=== PATIENT | male | born 1960 | race Caucasian/White ===

== ENCOUNTER 2018-02-11 10:35 | Outpatient (CLI) | payer BC, MEDICARE ==
[~2018-02-11] VITALS: Ht 172.7 cm; Wt 109.1 kg
--- NOTE | ~2018-02-11 | HEMODYNAMI ---
PATIENT:GINO WALSH MEDICAL RECORD: [id number] : 56 LOCATION:[facility] ADMISSION DATE: 02/11/18 Generatedon:02/11/201813:44 Patient name: GINO WALSH Patient #: [id number] SSN: DO B: 1960 Date of study: 02/11/2018 Page: Of Hemodynamic Procedure Report Patient Data Patient Demographics Procedure consent was obtained First Name: GINO Gender: Male Last Name: NICO : 1960 [facility] Initial: LISA Age: 57 year(s) Patient #: [id number] Race: Unknown Additional ID: [id number] Contact details [address]: [address] [place] [address] State: [place] City: [place] Zip code: [address] Past Medical History Allergies Allergen Reaction Date Comments Reported Other allergy 02/11/2018 TETRACYCLINE Admission Admission Data Admission Date: 02/11/2018 Admission Time: 10:35 Procedure Procedure Types Cath Procedure Diagnostic Procedure LHC LHC w/Coronaries Sedation Charges Moderate Sedation up to 15 minutes Procedure Description Procedure Date Procedure Date: 02/11/2018 Procedure Start Time: 13:32 Procedure End Time: 13:43 Procedure Staff Name Function Han Caal MD Performing Physician Pilar Gill RT Monitor Jose Lipscomb RN Nurse Leta Das RN Nurse Ijeoma Gray RT Scrub Procedure Data Cath Procedure Fluoroscopy Diagnostic fluoroscopy Total fluoroscopy Time: 2.5 time: 2.5 min min Diagnostic fluoroscopy Total fluoroscopy dose: 684 dose: 684 mGy mGy Contrast Material Contrast Material Type Amount (ml) Isovue 300 74 Entry Location Entry Primary Successful Side Size Upsize Upsize Entry Closure [place] ccessful Closure Location (Fr) 1 (Fr) 2 (Fr) Remarks Device Remarks Radial Right 6 Fr Mechanical artery Short Compression Estimated blood loss: 5 ml Diagnostic catheters Device Type Used For End Catheter Placement DIAGNOSTIC Jamey 110cm Procedure 5Fr catheter ([id number]) Procedure Complications No complications Procedure Medications Medication Administration Route Dosage Oxygen etCO2 Nasal cannula 2 l/min Zofran I.V. 4 mg Lidocaine 2% added to field 20 Heparin Flush Bag added to field 2 bags (1000units/500ml NS) 0.9% NaCl I.V. 100 ml/hr Versed I.V. 2 mg Fentanyl I.V. 100 mcg Fentanyl I.V. 50 mcg Radial Cocktail I.A. (Verapomil 2mg/Nitro 400mcg/Heparin 1500units) Versed I.V. 1 mg Hemodynamics Rest Heart Rate: 55 (bpm) Pressure Samples Time Site Value (mmHg) Purpose Heart Use Rate(bpm) 13:35 LV 144/-6,12 Snapshot 71 Gradients Valve Time Site Site Mean SEP/DFP Peak To Heart Use 1 2 (mmHg) (sec/min) Peak Rate (mmHg) (bpm) Aortic 13:36 LV AO 71 Snapshots Pre Cath Intra NCS Post Cath Vital Signs Time Heart Resp SPO2 etCO2 NIBP (mmHg) Rhythm Pain Sedation Rate (ipm) (%) (mmHg) Status Level (bpm) 13:14:15 53 14 97 47 131/77(106) NSR 0 (11) 10(A) , No pain 13:19:08 61 15 98 45 139/85(101) NSR 0 (11) 10(A) , No pain 13:24:01 67 22 99 47 138/73(106) NSR 0 (11) 10(A) , No pain 13:28:52 63 15 97 51 109/80(92) NSR 0 (11) 10(A) , No pain 13:33:37 63 13 98 23.2 119/73(89) NSR 0 (11) 10(A) , No pain 13:38:27 69 14 96 24 100/56(81) NSR 0 (11) 10(A) , No pain 13:43:26 64 12 95 33 Measuring NSR 0 (11) 10(A) , No pain 13:43:53 66 13 96 35.2 129/72(114) NSR 0 (11) 10(A) , No pain Medications Time Medication Route Dose Verified Delivered Reason Notes E ffectiveness by by 13:16:17 Oxygen etCO2 2 Han Leandroie used for Nasal l/min Ten Lipscomb outreach worker cannula 13:16:25 Zofran I.V. 4 mg Han Buffie Per Caal MD Lipscomb RN physician 13:16:40 Lidocaine 2% added 20ml Han Han used for to vial Ten Caal MD procedure field 13:16:54 Heparin Flush added 2 Han Han used for Bag to bags Ten Caal MD procedure (1000units/500ml field NS) 13:17:03 0.9% NaCl I.V. 100 Han Buffie Per ml/hr Ten Lipscomb RN physician 13:26:11 Versed I.V. 2 mg Han Buffie for sedation Ten Lipscomb RN 13:26:18 Fentanyl I.V. 100 Han Buffie for sedation mcg Ten Lipscomb RN 13:34:02 Fentanyl I.V. 50 Han Buffie for sedation mcg Ten Lipscomb RN 13:34:14 Radial Cocktail I.A. Han Han for (Verapomil Ten Caal MD vasodilation 2mg/Nitro 400mcg/Heparin 1500units) 13:35:37 Versed I.V. 1 mg Han Buffie for sedation Ten Lipscomb RN Procedure Log Time Note 13:01:51 Jose Lipscomb RN sent for patient. Start room use. 13:01:52 Time tracking: Regular hours (M-F 7:00 - 5:00) 13:01:56 Plan of Care:Hemodynamics will remain stable., Cardiac rhythm will remain stable., Comfort level will be maintained., Respiratory function will remain adequate., Patient/ family verbilizes understanding of procedure., Procedure tolerated without complication., Recovers from procedure without complications.. 13:08:05 Patient received from Pre/Post Procedure Room to [facility] 1 Alert and oriented. Tansferred to table in Supine position. 13:08:06 Warm blankets applied, and david hugger turned on for patient comfort. 13:08:07 Correct patient and procedure confirmed by team. 13:08:11 Signed procedure consent form obtained from patient. 13:08:12 ECG and BP/O2 sat monitors applied to patient. 13:08:13 Full Disclosure recording started 13:13:12 Vital chart was started 13:16:17 Oxygen 2 l/min etCO2 Nasal cannula was administered by Jose Lipscomb RN; used for procedure; 13:16:25 Zofran 4 mg I.V. was administered by Jose Lipscomb RN; Per physician; 13:16:40 Lidocaine 2% 20ml vial added to field was administered by Han Caal MD; used for procedure; 13:16:54 Heparin Flush Bag (1000units/500ml NS) 2 bags added to field was administered by Han Caal MD; used for procedure; 13:17:03 0.9% NaCl 100 ml/hr I.V. was administered by Jose Lipscomb RN; Per physician; 13:21:20 Baseline sample Acquired. 13:21:26 Rhythm: sinus bradycardia 13:21:39 H&P Date Dictated: 02/11/2018 Within 30 days and on chart., H&P Addendum completed by physician on day of procedure. (MUST COMPLETE FOR ALL OUTPATIENTS). 13:21:40 Pre-procedure instructions explained to patient. 13:21:40 Pre-op teaching completed and patient verbalized understanding. 13:21:42 Family in patients room. 13:21:43 Patient NPO since Midnight. 13:21:53 Patient allergic to Other allergyTETRACYCLINE 13:21:56 Is the patient allergic to Iodine/contrast media? No. 13:22:00 Is patient on blood thinner?No 13:22:08 Previous problem with sedation/anesthesia? Yes NAUSEA 13:22:10 Snore? Yes 13:22:11 Sleep apnea? Yes 13:22:12 Deviated septum? No 13:22:13 Opens mouth fully? Yes 13:22:15 Sticks out tongue? Yes 13:22:17 Airway obstruction? No ? 13:22:21 Dentures? Yes IN TIGHT 13:22:25 Modified Wali's test Ulnar < 7 seconds 13:22:27 Patient pain scale 0/10 ?. 13:22:33 IV patent on arrival in left hand with 0.9% NaCl at [facility]. 13:22:37 Right Radial & Right Groin area was prepped with chlora-prep and draped in sterile fashion 13:22:37 Alarms reviewed by R. N. 13:22:38 Sharps counted by scrub and verified by R.N. 13:22:40 Use device set Radial Dx or PCI 13:22:41 ACIST Syringe (99972) opened to sterile field. 13:22:43 Bag Decanter () opened to sterile field. 13:22:44 ACIST Hand Control (60779) opened to sterile field. 13:22:44 ACIST Manifold (84658) opened to sterile field. 13:22:45 Tegaderm 4 x 4 (1626W) opened to sterile field. 13:22:46 Medline Cath Pack ([id number]) opened to sterile field. 13:22:47 DIAGNOSTIC WIRE .035 260cm J wire (610331) opened to sterile field. 13:22:48 MBrace Wrist Support ([id number]) opened to sterile field. 13:22:50 SHEATH 6Fr Prelude Radial ([id number]) opened to sterile field. 13:24:32 --------ALL STOP TIME OUT------ ::32 Final Timeout: patient, procedure, and site verified with staff and physician. All members of the team are in agreement. 13:24:34 Right Radial & Right Groin site verified by team. 13:24:36 Physical assessment completed. ASA score P 2 - A patient with mild systemic disease as per Han Caal MD. 13:24:39 Sedation plan: IV Moderate Sedation Medication:Versed, Fentanyl 13:26:11 Versed 2 mg I.V. was administered by Jose Lipscomb RN; for sedation; 13:26:18 Fentanyl 100 mcg I.V. was administered by Jose Lipscomb RN; for sedation; 13:31:40 Zero performed for pressure channel P1 13:32:10 Procedure started. 13:32:23 Local anesthetic to right radial artery with Lidocaine 2% by Han Caal MD.INITIAL ACCESS ONLY 13:34:02 Fentanyl 50 mcg I.V. was administered by Jose Lipscomb RN; for sedation; 13:34:07 A 6 Fr Short sheath was inserted into the Right Radial artery 13:34:14 Radial Cocktail (Verapomil 2mg/Nitro 400mcg/Heparin 1500units) I.A. was administered by Han Caal MD; for vasodilation; 13:35:06 A DIAGNOSTIC Jamey 110cm 5Fr catheter (770371) was advanced over the wire and used for Procedure. 13:35:37 Versed 1 mg I.V. was administered by Jose Lipscomb RN; for sedation; 13:35:38 LV gram done using HORTON 13:35:40 Injector settings: Ml/sec: 5, Volume: 15, 13:35:55 LV hemodynamics recorded. 13:36:12 EF : 55 % 13:37:39 RCA angiography performed. 13:39:52 LCA angiography performed. 13:39:59 Catheter removed. 13:41:12 Procedure ended.(Physican Out) 13:41:32 TR BAND Large ([id number]) opened to sterile field. 13:41:35 Sheath removed intact; hemostasis achieved with Mechanical Compression to the Right Radial artery. 13:41:47 Fluoroscopy time 02.50 minutes. 13:41:59 Fluoroscopy dose: 684 mGy 13:41:59 Flurop Dose total: 684 13:42:03 Contrast amount:Isovue 300 74ml. 13:42:04 Sharps counted by scrub and verified by R.N. 13:42:07 TR band inflated with 11cc of air. 13:42:11 Post-procedure physical assessment completed. ASA score P 2 - A patient with mild systemic disease as per Han Caal MD. 13:42:18 Post procedure rhythm: sinus rhythm 13:42:21 Estimated blood loss: 5 ml 13:42:22 Post procedure instruction explained to patient.Patient verbalizes understanding. 13:42:22 Patient needs reinforcement of post procedure teaching. 13:42:49 Procedure type changed to Cath procedure, Diagnostic procedure, LHC, LHC w/Coronaries, Sedation Charges, Moderate Sedation up to 15 minutes 13:43:17 Procedure and supply charges have been captured, reviewed, submitted and are correct. 13:43:27 Procedure Complication : No complications 13:43:29 Vital chart was stopped 13:43:30 See physician's report for complete and final results. 13:43:31 Report given to Pre/Post Procedure Room. 13:43:35 Patient transfered to Pre/Post Procedure Room with Bed. 13:43:37 Procedure ended. 13:43:37 Full Disclosure recording stopped 13:43:41 End room use (Document Last) Device Usage Item Name Manufacture Quantity Catalog Number Hospital Part Current M inimal Lot# / Charge Number Stock Stock Serial# Code ACIST Syringe Acist 1 39831 777564 431835 946110 2 0 (10569) [employer] Bag Decanter Microtek 1 209422 54122 798217 5 () Medical Inc. ACIST Hand Acist 1 78976 747420 108646 011000 5 Control (54646) [employer] ACIST Manifold Acist 1 40433 134945 456765 973759 5 (67672) [employer] Inc Tegaderm 4 x 4 3M 1 1626W 841698 695830 848039 5 (1626W) Medline Cath Cardinal 1 [id number] 556799 49129 615101 5 [facility] ([id number]) DIAGNOSTIC WIRE [facility] 1 742240 829109 702161 929452 3 0 .035 260cm J wire (691186) MBrace Wrist Advanced 1 140-0250-00 367350 12727 464884 5 Support Vascular ([id number]) Dynamics SHEATH 6Fr Merit 1 [id number] 642971 548981 840698 5 Prelude Radial Medical ([id number]) DIAGNOSTIC Terumo 1 25-2872 411969 203217 392276 5 Jamey 110cm 5Fr catheter (730336) TR BAND Large Terumo 1 [id number] 690824 904956 863546 4 0 ([id number]) Signature Audit Onyx Stage Time Signature Unsigned Intra-Procedure 02/11/2018 Pilar Gill 1:44:16 PM RT(R) Signatures Monitor : Pilar Gill Signature : RT Date : Time : [place] [id number] [facility] [place] [address]
[2018-02-11] MEDS ORDERED: VALIUM10 MG PO (10:53)
[2018-02-11] MEDS ORDERED: TESTOSTERONE CYP 200 (10:53)
[2018-02-11] MEDS ORDERED: FLOMAX0.4 MG PO (10:53)
[2018-02-11] MEDS ORDERED: UROCIT-K10 MEQ PO (10:54)
[2018-02-11] MEDS ORDERED: HCTZ25 MG PO (10:54)
[2018-02-11] MEDS ORDERED: DILAUDID INJ2 MG/ML IV (10:55)
[2018-02-11 11:10] VITALS: BP 141/87; Ht 172.7 cm; Wt 109.1 kg
[2018-02-11 11:17] LABS: BASOPHILS 0.6 % (0-2); EOSINOPHILS 1.8 % (0-7); HEMOGLOBIN 19.9 g/dL (13.5-17.5); IMMATURE GRANULOCYTES 0.3 % (0-5); LYMPHOCYTES 17.9 % (15-50); MCH 32.8 pg (26.0-34.0); MCHC 36.2 g/dL (31.0-37.0); MCV 90.8 fL (80.0-100.0); MEAN PLATELET VOLUME 9.8 fL (7.4-10.4); MONOCYTES 9.5 % (2-11); NEUTROPHILS 69.9 % (40-80); PLATELET COUNT 142 10x3/uL (130-400); RBC 6.06 10x6/uL (4.20-6.10); RDW 12.6 % (11.5-14.5); WBC 9.3 10x3/uL (4.8-10.8)
[2018-02-11 11:28] LABS: CALC OSMOLALITY 271 mosm/kg (275-300); CALCIUM 8.7 mg/dL (8.5-10.1); CARBON DIOXIDE 29.3 mmol/L (21.0-32.0); CHLORIDE - SERUM 101 mmol/L (98-107); CREATININE - SERUM 0.9 mg/dL (0.6-1.3); GLUCOSE 137 mg/dL (74-106); POTASSIUM - SERUM 3.7 mmol/L (3.5-5.1); SODIUM 135 mmol/L (136-145); UREA NITROGEN 13 mg/dL (7-18); eGFR NON AFRICAN AMERICAN > 90 mL/min (90-120)
== END 2018-02-11 16:25 | disposition home or self-care (01) ==
LOC: D.CATH 10:35
PROVIDERS: Internal Medicine Cardiovascular Disease
DX: I20.9 Angina pectoris, unspecified (principal); F32.9 Major depressive disorder, single episode, unspecified; Z96.652 Presence of left artificial knee joint; Z87.891 Personal history of nicotine dependence; Z88.1 Allergy status to other antibiotic agents; Z79.891 Long term (current) use of opiate analgesic; Z79.899 Other long term (current) drug therapy; Z01.812 Encounter for preprocedural laboratory examination

== ENCOUNTER 2018-12-04 08:05 | Day surgery (SDC) | payer BC, MEDICARE ==
[2018-12-03 09:17] LABS: CALC OSMOLALITY 290 mosm/kg (275-300); CALCIUM 8.4 mg/dL (8.5-10.1); CARBON DIOXIDE 34.4 mmol/L (21.0-32.0); CHLORIDE - SERUM 104 mmol/L (98-107); GLUCOSE 167 mg/dL (74-106); HEMATOCRIT 52.1 % (42.0-54.0); HEMOGLOBIN 19.3 g/dL (13.5-17.5); MCH 33.8 pg (26.0-34.0); MCV 91.2 fL (80.0-100.0); MEAN PLATELET VOLUME 9.7 fL (7.4-10.4); POTASSIUM - SERUM 3.5 mmol/L (3.5-5.1); RBC 5.71 10x6/uL (4.20-6.10); RDW 12.7 % (11.5-14.5); SODIUM 143 mmol/L (136-145); UREA NITROGEN 17 mg/dL (7-18); eGFR NON AFRICAN AMERICAN 81 mL/min (90-120)
[~2018-12-04] VITALS: Ht 172.7 cm; Wt 117.9 kg
[~2018-12-04 08:05] MED LIST: DILAUDID INJ2 MG/ML IV; FLOMAX0.4 MG PO; HCTZ25 MG PO; TESTOSTERONE CYP 200; UROCIT-K10 MEQ PO; VALIUM10 MG PO
[2018-12-04] MEDS ORDERED: VITAMIN D5000 UNIT PO (10:05)
[2018-12-04 10:27] VITALS: Ht 172.7 cm; Wt 117.9 kg
[2018-12-04] MEDS ORDERED: VISTARIL50 MG PO (15:26)
[2018-12-04] MEDS ORDERED: OXYCODONE HCL5 M1 PO (15:26)
--- NOTE | 2018-12-04 16:00 | NUR ---
REC'D FROM RR. FAMILY AT BEDSIDE. SLING IN USE TO RUE. WIGGLES FINGERS, NUMB TO TOUCH. FL DIET SERVED.
--- NOTE | 2018-12-04 16:30 | NUR ---
TOLERATED DIET. IV DC'D WITH CATHETER INTACT. AMBULATED TO BATHROOM. VOIDED WITHOUT DIFFICULTY.
--- NOTE | 2018-12-04 17:00 | NUR ---
WRITTEN AND VERBAL DC INST. GIVEN TO PT ALONG WITH RX.VERBALIZED UNDERSTANDING.
--- NOTE | 2018-12-04 17:15 | NUR ---
DC'D HOME WITH FAMILY VIA PRIVATE VEHICLE. STABLE AT TIME OF DC.
--- NOTE | 2018-12-05 09:12 | OP ---
PATIENT NAME: GINO WALSH MEDICAL RECORD: [id number] :56 LOCATION:[facility] ADMISSION DATE: SURGEON: GINO FLOOD DO DATE OF OPERATION: 12/04/2018 PROCEDURE PERFORMED: Right shoulder arthroscopy with labral debridement, subacromial decompression, biceps tendinosis, and open rotator cuff repair. PREOPERATIVE DIAGNOSES: Right shoulder rotator cuff tear, SLAP tear, subacromial impingement. POSTOPERATIVE DIAGNOSES: Right shoulder rotator cuff tear, SLAP tear, subacromial impingement. INDICATIONS: Ms. Walsh is a 58-year-old male who presented to my office with MRI imaging that showed a partial rotator cuff tear, probably SLAP tear. He has had pain with that for quite some time. He tried all manner of nonoperative treatment to no avail and he was tired of the weakness and tied is bothering him and he wants something done surgically and informed him of the risks and benefits including damage to nerves and vessels, need for further surgery, infection, bleeding, retear of the rotator cuff and continued pain. He is on the pain pump and he was aware that his pain will be difficult to manage after the surgery. After knowing all the risks and the benefits, he signed the consent. SURGEON: Gino Flood DO DESCRIPTION OF PROCEDURE: The patient was taken to the operative suite after given a block by anesthesia in preoperative area laid in the left lateral decubitus position with the right shoulder up. He was given 2 grams of Ancef preoperatively. The right shoulder was prepped and draped in sterile fashion. He was sedated and an LMA was placed prior to prepping and draping. A timeout was performed and everyone was agreeance with the correct side, site, patient and procedure. Once that was completed, the procedure began by inflating the shoulder joint with normal saline 60 mL through the posterior portal, an 18-gauge spinal needle. This was then removed. An 11 blade scalpel was used to establish posterior portal. Trocar was then entered into the shoulder joint and the camera was entered and the anterior portal was then established using a spinal needle and 11-blade scalpel. A probe was brought in. The SLAP tear was seen. The bicep tendon was quite frayed. There was fraying of the supraspinatus as well. Burner was brought in and biceps tenotomy was done at time as well as labral debridement. The shaver was then brought and debrided the supraspinatus tendon. There was U-shaped tear seen completely through the tendon. The subscapularis was then inspected and seen to be in good repair and nothing was in the inferior gutter. The shoulder scope was then put into the subacromial space and a lateral portal established using spinal needle and 11-blade scalpel. A subacromial debridement was done decompression and part of the distal lateral acromion was removed. The rotator cuff and bursa was debrided and the tear was seen on the bursal side as well. The lateral portal was then opened with a 15-blade scalpel in order for the rotator cuff repair. Careful dissection was made down to the rotator cuff. Bursa was cleaned off of it. The SpeedBridge was then used to repair it with 2 medial anchors and 2 lateral anchors using FiberTape and sutures had a very nice repair with this pulling the rotator cuff over and getting good compression over at. That site was then irrigated with normal saline and the attention was then drawn to the OPERATIVE REPORT [id number] GINO WALSH bicep tendon. Anterior humerus incision was made over it. Dissection was made down to the long head of the biceps tendon. It was pulled out through the incision, whipstitched and then a button was placed on it and a single unicortical hole was placed in the humerus. The button was then put through it and flipped. Once we got to flip and catch the tendon was cinched down to it and then tied and then a free needle was used to tie go through the bicep tendon again and tied down. The excess tendon was cut at that time as well as a suture. The site was then thoroughly irrigated and then closed with 2-0 Vicryl in inverted interrupted fashion, 4-0 Monocryl ran on the skin. Same for the open rotator cuff site and the 2 portal sites were closed with 4-0 Monocryl in inverted interrupted fashion and Dermabond was placed on the incisions. Telfa and Tegaderm then placed on them. He was then awakened and taken to recovery in stable condition. BLOOD LOSS: Minimal. COMPLICATIONS: None. TRANSINT:[id number] Voice Confirmation ID: [id number] DOCUMENT ID: [id number] GINO FLOOD DO at 0912 CC: [id number] DICTATION DATE: 12/04/18 1523 RHIA: 12/04/181922 [facility] 12/04/18 [facility] [address] [place] [address]
== END 2018-12-04 17:15 | disposition home or self-care (01) ==
LOC: D.OPS 08:05
PROVIDERS: Anesthesiology; ATTEND Orthopaedic Surgery
DX: M75.111 Incomplete rotator cuff tear or rupture of right shoulder, not specified as traumatic (principal); S43.431A Superior glenoid labrum lesion of right shoulder, initial encounter; M75.41 Impingement syndrome of right shoulder; X58.XXXA Exposure to other specified factors, initial encounter; Z01.812 Encounter for preprocedural laboratory examination

== ENCOUNTER 2019-05-18 18:26 | Inpatient (IN) | payer MEDICARE, BC ==
[~2019-05-18] VITALS: Ht 172.7 cm; Wt 122.6 kg
--- NOTE | ~2019-05-18 | HP ---
PATIENT: GINO WALSH MEDICAL RECORD: [id number] ACCOUNT: [id number] LOCATION:[address] : 56 ADMISSION DATE: 05/18/19 PCP: MADHAVI KIMBALL DO HISTORY AND PHYSICAL EXAMINATION HISTORY OF PRESENT ILLNESS: Mr. Walsh is a 58-year-old white male who was initially seen in the walk-in clinic on 05/13/2019 and diagnosed with pneumonia. His initial flu test was negative. He was given a gram of Rocephin and started on p.o. Levaquin. He was seen in followup the following day and a gram of Rocephin was repeated. I am seeing today in followup and clinically he still looks very ill. He is diaphoretic here in the office today. His blood pressure is 116/76. His sats are running 90-91% at rest, but he gets very, very short of breath when he does any walking and I am sure they are dropping quite lower than this. His x-ray today really reveals no definite infiltrate, and upon reviewing the other x-rays, I am hard pressed to see a definite infiltrate on those. He has a white count today is normal and repeat flu test is negative. White count is 9.0. His H and H is normal at 16.4 and 48. He does complain of some increased swelling of his right leg, which is chronically swollen more than the left, but it is noticeably increased over the last few days. His EKG in the office is also unremarkable. I feel he is going to need to be admitted and treated for acute on chronic bronchitis exacerbation, but his PE needs to be ruled out. Also, he needs to have his enzymes cycled and will also get a Doppler of his right lower leg. Clinically, he looks moderately ill at this time. PAST MEDICAL HISTORY: Significant for chronic low back pain and he has a pain pump that is monitored by a pain physician in [place]. He just had his pain pump redone just a week ago. He also has chronic fatigue, chronic anxiety and depression, gout, hearing loss, hyperlipidemia, testicular hypofunction, obesity and prediabetes. He has also had kidney stones in the past and vitamin D deficiency. PAST SURGICAL HISTORY: Include a wrist surgery, total knee, low back surgery times 4, hernia repair, and recent revision of pain pump. ALLERGIES: TETRACYCLINE. HOME MEDICATIONS: At this time, include Diazepam 10 mg 1 daily p.r.n. muscle spasm, vitamin D 50,000 units q. week, potassium CR 10 mEq 2 per day, tamsulosin 0.4 every day, hydrochlorothiazide one-half tablet once a day, Dilaudid pain pump, and testosterone 1 mL every 3 weeks. FAMILY HISTORY: Significant for coronary artery disease and type 2 diabetes. SOCIAL HISTORY: The patient is . Denies smoking history. REVIEW OF SYSTEMS: Significant for possibly some low-grade fever. He is diaphoretic, extremely dyspneic, has had a little nausea, but no vomiting. PHYSICAL EXAMINATION: GENERAL: He appears mildly to moderately ill. His weight is 269. Height 5 feet 8 inches, BMI 40.9. VITAL SIGNS: BP is 116/76, sats are running between 90% and 91%. Pulse 81. HEENT: Mild to moderately ill, dyspneic with minimal ambulation. Gets dizzy when he stands. TMs are clear. Nasal membranes are a little red. HISTORY AND PHYSICAL [id number] GINO WALSH HEART: Regular. LUNGS: With some few coarse sounds. ABDOMEN: Soft. EXTREMITIES: Lower extremities reveal edema, right worse than left. NEUROLOGIC: Gait, he uses a cane to walk and he is rather stiff. IMPRESSION: 1. Marked dyspnea, [id number] bronchitis versus pneumonia versus PE versus other. 2. Right lower leg swelling, worse. 3. 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 PLAN: 1. Called and discussed with household assistant and we will discuss with the hospital rounding staff. 2. Check CTA and venous Doppler of right leg. 3. IV antibiotics and fluids. Les oleary. See medication list for home meds. See orders for rest of plan. TRANSINT:[id number] Voice Confirmation ID: [id number] DOCUMENT ID: [id number] MADHAVI KIMBALL DO CC: [id number] DICTATION DATE: 05/18/191755 CHEESEMAKING LABORER: 05/18/19 1848 ADM IN [facility] [address] [place] [address]
[~2019-05-18 18:26] MED LIST changes: +OXYCODONE HCL5 M1 PO; +VISTARIL50 MG PO; +VITAMIN D5000 UNIT PO
--- NOTE | 2019-05-18 19:20 | NUR ---
DIRECT ADMIT TTO 2103 AT UIS TIME BED LOW AND LOCKED CALL LIGHT PROVIDED AND EFFORTS MADE FFOR COMFORT WILL NOW REVIEW ORDERS AND PROVIDE IMEDIATE NEEDS
[2019-05-18 20:32] LABS: BASOPHILS 0.5 % (0-2); EOSINOPHILS 2.7 % (0-7); HEMATOCRIT 48.6 % (42.0-54.0); HEMOGLOBIN 16.6 g/dL (13.5-17.5); IMMATURE GRANULOCYTES 1.3 % (0-5); MCHC 34.2 g/dL (31.0-37.0); MCV 93.6 fL (80.0-100.0); MEAN PLATELET VOLUME 9.1 fL (7.4-10.4); MONOCYTES 11.2 % (2-11); NEUTROPHILS 68.3 % (40-80); PLATELET COUNT 201 10x3/uL (130-400); RBC 5.19 10x6/uL (4.20-6.10); WBC 9.1 10x3/uL (4.8-10.8)
[2019-05-18 21:32] LABS: ALBUMIN 3.1 g/dL (3.4-5.0); ALKALINE PHOSPHATASE 63 U/L (46-116); ALT (SGPT) 26 U/L (10-68); CALC OSMOLALITY 287 mosm/kg (275-300); CALCIUM 8.2 mg/dL (8.5-10.1); CARBON DIOXIDE 37.2 mmol/L (21.0-32.0); CHLORIDE - SERUM 102 mmol/L (98-107); CKMB 1.5 U/L (0.0-3.6); CREATININE - SERUM 1.1 mg/dL (0.6-1.3); GLUCOSE 218 mg/dL (74-106); POTASSIUM - SERUM 4.7 mmol/L (3.5-5.1); PRO BNP 38 pg/mL (0-125); PROTEIN - SERUM 6.9 g/dL (6.4-8.2); SODIUM 140 mmol/L (136-145); TROPONIN-I < 0.017 ng/mL (0.000-0.060); UREA NITROGEN 17 mg/dL (7-18); eGFR NON AFRICAN AMERICAN 72 mL/min (90-120)
[2019-05-19] VITALS (8 sets, daily range): BP systolic 115–173; BP diastolic 51–91; Ht 172.7 cm; Wt 122.6 kg
[2019-05-19 06:11] LABS: BASOPHILS 0.6 % (0-2); EOSINOPHILS 3.4 % (0-7); HEMATOCRIT 47.4 % (42.0-54.0); IMMATURE GRANULOCYTES 1.9 % (0-5); LYMPHOCYTES 22.7 % (15-50); MCH 31.9 pg (26.0-34.0); MCHC 33.8 g/dL (31.0-37.0); MCV 94.4 fL (80.0-100.0); MEAN PLATELET VOLUME 9.1 fL (7.4-10.4); MONOCYTES 10.6 % (2-11); NEUTROPHILS 60.8 % (40-80); PLATELET COUNT 194 10x3/uL (130-400); RBC 5.02 10x6/uL (4.20-6.10); RDW 13.1 % (11.5-14.5); WBC 8.9 10x3/uL (4.8-10.8)
[2019-05-19 06:34] LABS: INR 1.12 (0.85-1.17); PROTIME 14.4 SECONDS (11.6-15.0)
[2019-05-19 06:35] LABS: APTT 43.4 SECONDS (22.8-39.4)
[2019-05-19 06:36] LABS: D-DIMER-QUANTITATIVE 1.96 ug/mLFEU (0.20-0.54)
[2019-05-19 06:47] LABS: CALCIUM 7.8 mg/dL (8.5-10.1); CARBON DIOXIDE 33.4 mmol/L (21.0-32.0); CHLORIDE - SERUM 102 mmol/L (98-107); CKMB 1.4 U/L (0.0-3.6); CREATINE KINASE 80 UL (21-232); MAGNESIUM - SERUM 1.9 mg/dL (1.8-2.4); PHOSPHOROUS 3.5 mg/dL (2.5-4.9); SODIUM 141 mmol/L (136-145); UREA NITROGEN 14 mg/dL (7-18)
[2019-05-19 07:02] LABS: CALC OSMOLALITY 285 mosm/kg (275-300); CREATININE - SERUM 0.8 mg/dL (0.6-1.3); GLUCOSE 168 mg/dL (74-106); POTASSIUM - SERUM 3.8 mmol/L (3.5-5.1); TROPONIN-I < 0.017 ng/mL (0.000-0.060); eGFR NON AFRICAN AMERICAN > 90 mL/min (90-120)
[2019-05-19 10:20] LABS: APPEARANCE CLEAR (CLEAR); COLOR YELLOW (YELLOW)
[2019-05-19 10:21] LABS: BACTERIA FEW /hpf (NEGATIVE); BILIRUBIN NEGATIVE (NEGATIVE); EPITHELIAL CELLS OCC /hpf (0-5); GLUCOSE 500 mg/dL (NEGATIVE); KETONE NEGATIVE (NEGATIVE); NITRITE NEGATIVE (NEGATIVE); PROTEIN NEGATIVE (NEGATIVE); RED CELLS - URINE 0-5 /hpf (0-5); UROBILINOGEN NORMAL (NORMAL); WHITE CELLS - URINE RARE /hpf (NEGATIVE)
[2019-05-19 12:56] LABS: CKMB 1.4 U/L (0.0-3.6); CREATINE KINASE 90 UL (21-232); TROPONIN-I < 0.017 ng/mL (0.000-0.060)
--- NOTE | 2019-05-19 22:00 | NUR ---
REPORT RECIEVED AND ROUNDING COMPLETE. PATIENT LAYING IN HIGH FOWLERS, EYES CLOSED BREATHING EVEN AND UNLABORED. NO DISTRESS NOTED AT THIS TIME. AT BEDSIDE, LEFT AC PIV THAT IS SALINE LOCKED. NO NEEDS AT THIS TIME CALL MAIRA NORRIS ND BED IN LOWEST LOCKED POSITION.
[2019-05-20 04:00] VITALS: BP 142/68
[2019-05-20 06:22] LABS: BASOPHILS 0.4 % (0-2); EOSINOPHILS 2.5 % (0-7); HEMATOCRIT 44.9 % (42.0-54.0); HEMOGLOBIN 15.5 g/dL (13.5-17.5); IMMATURE GRANULOCYTES 1.5 % (0-5); LYMPHOCYTES 21.1 % (15-50); MCH 32.1 pg (26.0-34.0); MCHC 34.5 g/dL (31.0-37.0); MEAN PLATELET VOLUME 9.2 fL (7.4-10.4); MONOCYTES 8.9 % (2-11); NEUTROPHILS 65.6 % (40-80); PLATELET COUNT 192 10x3/uL (130-400); RBC 4.83 10x6/uL (4.20-6.10); RDW 12.7 % (11.5-14.5); WBC 9.2 10x3/uL (4.8-10.8)
[2019-05-20 06:45] LABS: CALC OSMOLALITY 284 mosm/kg (275-300); CALCIUM 8.1 mg/dL (8.5-10.1); CARBON DIOXIDE 36.2 mmol/L (21.0-32.0); CHLORIDE - SERUM 100 mmol/L (98-107); GLUCOSE 193 mg/dL (74-106); MAGNESIUM - SERUM 1.8 mg/dL (1.8-2.4); POTASSIUM - SERUM 3.4 mmol/L (3.5-5.1); SODIUM 141 mmol/L (136-145); UREA NITROGEN 11 mg/dL (7-18); eGFR NON AFRICAN AMERICAN 81 mL/min (90-120)
--- NOTE | 2019-05-20 07:17 | NUR ---
REPORT RECEVED FROM CUSHION ASSEMBLER AND PATIENT CARE ASSUMED. PATIENT LAYING IN BED ON BACK ALERT AND ORIENTED X 4.N PATIENT DENIES ANY NEEDS OR PAIN. WILL CONTINUE WITH PLAN OF CARE. SR UP X 2 BED IN LOW POSITION AND CALL LIGHT IN REACH.
[2019-05-20 08:27] VITALS: BP 140/72
[2019-05-20 11:11] VITALS: BP 118/74
--- NOTE | 2019-05-20 13:36 | NUR ---
PATIENT IS STABLE AND VSS. PATIENT AMBULATING IN HALLWAY AND VERY ANXIOUS TO GO HOME. PATIENT DENIES ANY NEEDS OR PAIN. WILL CONTINUE TO MONITOR. SR UP X 2 BED IN LOW POSITION AND CALL LIGHT IN REACH.
[2019-05-20] MEDS ORDERED: AUGMENTIN 875-11 TAB PO (13:53)
--- NOTE | 2019-05-20 14:35 | NUR ---
UPON ADMIT, PATIENT HAS NOT HAD A FLU SHOT. WHEN ASKED, HE STATES THAT HE HAD ONE AT DR KIMBALL OFFICE IN 2019.
--- NOTE | 2019-05-20 15:11 | NUR ---
PATIENT IS STABLE AND VSS. PATIENT DENIES ANY NEEDS OR PAIN. ORDERS RECEIVED FOR DC.N WRITTEN AND VERBAL INSTRUCTIONS GIVEN TO PATIENT AND SPOUSE. PATIENT AND SPOUSE VERBALIZED UNDERSTANDING AND SIGNED PAPERWORK. IV DCD WITHOUT DIFFICULTY AND PRESSURE DRESSING APPLIED. PATIENT IS DC HOME FOR SELF CARE.N PATIENT TO FRONT DOOR VIA WC ACCOMPANIED BY SPOUSE AND HOSPITAL PERSONNEL. PATIENT TO PRIVATE [id number] DRIVEN BY SPOUSE.
--- NOTE | 2019-05-20 16:21 | MORECARE ---
CASE MANAGEMENT DISCHARGE SUMMARY PATIENT: GINO WALSH LISA UNIT: [id number] ADM DATE: 05/18/19 AGE: 58 : 56 SEX: M ROOM/BED: D.2104 AUTHOR: RIDDHIDOC PHYSICIAN: REFERRING PHYSICIAN: MADHAVI KIMBALL DO DATE OF SERVICE: 05/20/19 Discharge Plan Patient Name: GNIO WALSH Facility: [facility]:[place] : 1960 Planned Disposition: Home Anticipated Discharge Date: 05/20/19 Discharge Date: 05/20/2019 Expected LOS: 2 Initial Reviewer: [email or web address] Initial Review Date: 05/20/2019 Generated: 05/20/19 5:20 pm Comments DCP- Discharge Planning Updated by [email or web address]: Danilo Avery on 05/20/19 3:[address] Patient Name: GINO WALSH Admission Status: Elective Accout number: [id number] Admission Date: 05-18-2019 : 1960 Admission Diagnosis: Attending: MADHAVI KIMBALL Current LOS: 2 Anticipated DC Date: 05-20-2019 Planned Disposition: Home Primary Insurance: MEDICARE A & B Discharge Planning Comments: CM MET WITH PT IN ROOM TO DISCUSS DISCHARGE PLANNING AND NEEDS. PT REPORTS LIVING AT HOME INDEPENDENTLY WITH HIS . PT HAS CPAP AND CANE WITH NO MEDICAL EQUIPMENT PROVIDER PREFERENCE. PT HAS NO OUTSIDE SERVICES ASSISTING IN THE HOME. CM DISCUSSED AVAILABILITY OF HOME HEALTH, REHAB SERVICES AND MEDICAL EQUIPMENT. PT DENIES DISCHARGE NEEDS, REPORTS HIS WILL PICK HIM UP FOR DISCHARGE HOME. SALES ASSOCIATE NURSE NOTIFED. Oil Exploration Engineer: Danilo Avery DCPIA - Discharge Planning Initial Assessment Updated by [email or web address]: Danilo Avery on 05/20/19 4:18 pm * Is the patient Alert and Oriented? Yes * How many steps to enter\exit or inside your home? 1-0 / 2-I * PCP DR. KIMBALL * Pharmacy [facility] [address] * Preadmission Environment Home with Family * ADLs Independent * Equipment Cane CPAP * Other Equipment NO MEDICAL EQUIPMENT PROVIDER PREFERENCE * List name and contact numbers for known caregivers / representatives who currently or will assist patient after discharge: MARYCHUY WALSH, SPOUSE, * Verbal permission to speak to the caregivers and representatives has been obtained from the patient. Yes * Community resources currently utilized None * Please name any agencies selected above. NONE * Additional services required to return to the preadmission environment? No * Can the patient safely return to the preadmission environment? Yes * Has this patient been hospitalized within the prior 30 days at any hospital? No Patient Name: GINO WALSH Page [id number] at [id number] All edits/amendments must be made on the electronic document DICTATION DATE: 05/20/191619 EQUIPMENT INSPECTOR: JANETH 05/20/19 162 RPT#: [id number] DC DATE:05/20/19 STATUS: DIS IN [facility] [address] [place] [address] END OF REPORT
== END 2019-05-20 15:13 | disposition home or self-care (01) | DRG 202 ==
LOC: D.M2 18:26
PROVIDERS: Family Medicine; ADMIT Family Medicine; ATTEND Family Medicine
PROC: 5A09357 Assistance with Respiratory Ventilation, Less than 24 Consecutive Hours, Continuous Positive Airway Pressure (ICD-10-PCS; principal; 2019-05-20)
DX: J20.9 Acute bronchitis, unspecified (principal); Z68.41 Body mass index [BMI] 40.0-44.9, adult; E66.01 Morbid (severe) obesity due to excess calories; G89.29 Other chronic pain; F32.9 Major depressive disorder, single episode, unspecified; E11.9 Type 2 diabetes mellitus without complications; E29.1 Testicular hypofunction; M79.89 Other specified soft tissue disorders